=== PATIENT | female | born 1975 | race Caucasian/White ===

== ENCOUNTER 2018-02-12 17:02 | Emergency (ER) | payer MEDICAID ==
[~2018-02-12] VITALS: Ht 170.2 cm; Wt 55.0 kg
[~2018-02-12 17:02] MED LIST: BENZ-16 PO; CYCL10TA10 PO; LEVA15HF4 IH
[2018-02-12 17:06] VITALS: BP 116/67
[2018-02-12] MEDS ORDERED: CLIN300C85 PO (18:34)
== END 2018-02-12 18:47 | disposition home or self-care (01) ==
LOC: ER 17:04
DX: L02.416 Cutaneous abscess of left lower limb (principal); Z88.0 Allergy status to penicillin; Z88.8 Allergy status to other drugs, medicaments and biological substances; Z79.899 Other long term (current) drug therapy
CPT/HCPCS: 99283; A6255; A6449

== ENCOUNTER 2018-09-07 17:36 | Emergency (ER) | payer MEDICAID ==
[~2018-09-07] VITALS: Ht 172.7 cm; Wt 65.0 kg
[~2018-09-07 17:36] MED LIST changes: +CLIN-96 PO
[2018-09-07 17:50] VITALS: BP 122/76
== END 2018-09-07 19:09 | disposition home or self-care (01) ==
LOC: ER 17:36
DX: F15.10 Other stimulant abuse, uncomplicated (principal); M25.512 Pain in left shoulder; R00.0 Tachycardia, unspecified; R07.89 Other chest pain; K02.9 Dental caries, unspecified; Z02.89 Encounter for other administrative examinations; Z88.0 Allergy status to penicillin; Z88.8 Allergy status to other drugs, medicaments and biological substances; Z79.899 Other long term (current) drug therapy
CPT/HCPCS: 99281

== ENCOUNTER 2018-10-15 10:25 | Emergency (ER) | payer MEDICAID ==
[~2018-10-15] VITALS: Ht 175.3 cm; Wt 66.0 kg
[2018-10-15 11:25] VITALS: BP 108/72
== END 2018-10-15 11:26 | disposition home or self-care (01) ==
LOC: ER 10:25
DX: F15.90 Other stimulant use, unspecified, uncomplicated (principal); I49.9 Cardiac arrhythmia, unspecified; Z88.0 Allergy status to penicillin; Z88.8 Allergy status to other drugs, medicaments and biological substances; Z79.2 Long term (current) use of antibiotics; Z79.899 Other long term (current) drug therapy
CPT/HCPCS: 99281

== ENCOUNTER 2020-01-23 17:58 | Emergency (ER) | payer MEDICAID ==
[~2020-01-23] VITALS: Ht 175.3 cm; Wt 63.6 kg
[~2020-01-23 17:58] MED LIST changes: -CLIN-96 PO; +CLIN-97 PO
[2020-01-23 19:02] LABS: CLARITY,URINE CLOUDY (Clear); COLOR,URINE YELLOW (Yellow); GLUCOSE, URINE 250 mg/dl (Neg); KETONES,URINE NEGATIVE (Neg); LEUKOCYTE ESTERASE ,URINE TRACE (Neg); NITRITES, URINE POSITIVE (Neg); OCCULT BLOOD,URINE TRACE-LYSED (Neg); PROTEIN,URINE 30 mg/dl (Neg)
--- NOTE | 2020-01-23 19:04 | NUR ---
VERBAL RECEIVED FROM CRISTO MOURA, FOR IBUPROFEN AND ZOFRAN TABS. PT WITH [facility] OF 12 AND NAUSEA THAT HAS PERSISTED VOER THE PAST 3 WEEKS SINCE SHE FIRST HAD THE FEVER AND BEGAN FEELING SICK. STATES THE RASH ALL OVER HER BODY HAS BEEN HERE FOR THE 3 WEEKS ALSO AND THE DISCOMFORT OF ITCHING HAS BEEN INTERMITTENT. STATES SHE HAS HAD NO NEW MEDICATIONS OR NEW FOODS. STATES SHE SMOKES METH DAILY AND WAS RECENTLY SUSPICIOUS IF SOMEONE HAD ADDED SOMETHING TO HER PIPE THAT MAY HAVE CAUSED THIS RASH ALSO. DENIES ANYONE AROUND HER BEING SICE OR BEING POSITIVE FOR COVID. SHE HAS NOT BEEN TESTED FOR COVID. STATES A "RASH JUST LIKE THIS" AFTER A PROCEDURE IN THE HOSPITAL 3 YRS AGO (FOR UTERUS BLEEDING COMPLICATIONS AFTER A STILLBIRTH).
[2020-01-23 19:07] LABS: UA COLLECTION TYPE CLN CATCH MIDSTREAM
[2020-01-23 19:09] LABS: AMORPHOUS PHOSPHATES 4+; BACTERIA,URINE FEW /HPF (Neg); MUCUS STRANDS FEW /LPF (Neg); RBC,URINE 0-2 /HPF (0-2); SQUAMOUS EPITHELIAL CELL,UR FEW /LPF (FEW); WBC,URINE 20-30 /HPF (0-4)
[2020-01-23] MEDS ORDERED: ondansetron 4mg rapidly disintigrating tab PO ONE (19:10)
[2020-01-23] MEDS ORDERED: ibuprofen tablet 400 MG TABLET PO ONE (19:10)
[2020-01-23] MEDS ORDERED: normal saline 1000ML IV soln IVB ONE (19:35)
[2020-01-23] MEDS ORDERED: CEPH-572 PO (19:36)
[2020-01-23] MEDS ORDERED: cephalexin 250mg capsule PO ONE (19:50)
[2020-01-23] MEDS ORDERED: PRED20TA PO (20:03)
--- NOTE | 2020-01-23 20:17 | NUR ---
negative strep. given keflex po (ok to take per pt). 2 liters ns started. pt ok to dc once fluids infused.
[2020-01-23 21:17] VITALS: BP 106/65
== END 2020-01-23 21:19 | disposition home or self-care (01) ==
LOC: ER 17:59
DX: J06.9 Acute upper respiratory infection, unspecified (principal); N39.0 Urinary tract infection, site not specified; Z20.828 Contact with and (suspected) exposure to other viral communicable diseases; F41.9 Anxiety disorder, unspecified; F31.9 Bipolar disorder, unspecified; F15.90 Other stimulant use, unspecified, uncomplicated; Z86.69 Personal history of other diseases of the nervous system and sense organs; Z98.890 Other specified postprocedural states; Z88.0 Allergy status to penicillin; Z88.8 Allergy status to other drugs, medicaments and biological substances; Z79.2 Long term (current) use of antibiotics; Z79.899 Other long term (current) drug therapy
CPT/HCPCS: 36415; 81001; 87081; 87088; 87880; 96360; 99284; J7030; U0003; 87077; 87186

== ENCOUNTER 2020-02-03 15:51 | Emergency (ER) | payer MEDICAID ==
[~2020-02-03] VITALS: Ht 175.3 cm; Wt 65.9 kg
[~2020-02-03 15:51] MED LIST changes: +CEPH-572 PO; +PRED20TA PO
[2020-02-03] MEDS ORDERED: normal saline 1000ML IV soln IVB ONE ×2 (17:20→18:40)
[2020-02-03 17:36] LABS: BASOPHILS # (AUTO) 0.1 X10'3 (0-0.2); BASOPHILS % (AUTO) 0.9 % (0-1); EOSINOPHILS # (AUTO) 0.2 X10'3 (0-0.9); EOSINOPHILS % (AUTO) 3.7 % (0-6); HEMATOCRIT 35.5 % (35.0-45.0); HEMOGLOBIN 11.9 g/dl (12.0-16.0); LYMPHOCYTES # (AUTO) 1.4 X10'3 (1.1-4.8); LYMPHOCYTES % (AUTO) 21.7 % (21-51); MEAN CORPUSCULAR HEMOGLOBIN 29.4 PG (27.0-31.0); MEAN CORPUSCULAR HGB CONC 33.5 g/dL (33.0-36.5); MEAN CORPUSCULAR VOLUME 87.8 FL (78-98); MEAN PLATELET VOLUME 7.3 FL (7.4-10.4); MONOCYTES # (AUTO) 0.7 X10'3 (0-0.9); MONOCYTES % (AUTO) 10.5 % (2-12); NEUTROPHILS # (AUTO) 4.2 X10'3 (1.8-7.7); NEUTROPHILS % (AUTO) 63.2 % (42-75); PLATELET COUNT 580 X10'3 (140-440); RED BLOOD COUNT 4.05 X10'6 (4.20-5.60); RED CELL DISTRIBUTION WIDTH 13.5 % (11.5-14.5); WHITE BLOOD COUNT 6.6 X10'3 (4.5-11.0)
[2020-02-03 17:43] LABS: ALANINE AMINOTRANSFERASE 27 U/L (12-78); ALBUMIN/GLOBULIN RATIO 0.6 (1.1-1.5); ALKALINE PHOSPHATASE 169 IU/L (46-116); ANION GAP 5 (8-16); ASPARTATE AMINO TRANSFERASE 46 U/L (10-37); BILIRUBIN,TOTAL 0.4 MG/DL (0.1-1.0); BLOOD UREA NITROGEN 18 MG/DL (7-18); BUN/CREATININE RATIO 21.2 (6.6-38.0); C-REACTIVE PROTEIN 6.73 MG/DL (0.0-0.5); CALCIUM 9.3 MG/DL (8.5-10.1); CHLORIDE 100 MMOL/L (99-107); CREATININE 0.85 MG/DL (0.40-0.90); GLUCOSE 108 MG/DL (70-104); SODIUM 136 MMOL/L (135-145); TOTAL CARBON DIOXIDE 31.1 MMOL/L (24-32); TOTAL PROTEIN 8.4 G/DL (6.4-8.2); eGFR 73 ML/MIN
[2020-02-03 17:47] LABS: URINE HCG NEGATIVE (NEG)
[2020-02-03 17:52] LABS: CLARITY,URINE CLOUDY (Clear); COLOR,URINE YELLOW (Yellow); GLUCOSE, URINE NEGATIVE (Neg); KETONES,URINE NEGATIVE (Neg); LEUKOCYTE ESTERASE ,URINE NEGATIVE (Neg); NITRITES, URINE POSITIVE (Neg); OCCULT BLOOD,URINE TRACE-INTACT (Neg); PROTEIN,URINE NEGATIVE (Neg); UA COLLECTION TYPE CLN CATCH MIDSTREAM
[2020-02-03 18:00] LABS: WBC,URINE 20-30 /HPF (0-4)
[2020-02-03 18:02] LABS: BACTERIA,URINE 4+ /HPF (Neg); RBC,URINE 0-2 /HPF (0-2); STARCH,URINE FEW /HPF (NEGATIVE)
[2020-02-03 18:03] LABS: MUCUS STRANDS MODERATE /LPF (Neg)
[2020-02-03 18:05] LABS: SQUAMOUS EPITHELIAL CELL,UR MODERATE /LPF (FEW)
[2020-02-03 18:17] LABS: HIV ANTIBODY 1&2 RAPID NON-REACTIVE (Neg)
[2020-02-03] MEDS ORDERED: DOXYCYCLINE 100MG CAPSULE PO STA (18:36)
[2020-02-03] MEDS ORDERED: CefTRIAXone/D5W-Rocephin 1gm 50 ML IV ONE (18:40)
[2020-02-03] MEDS ORDERED: acetaminophen 325mg tablet PO ONE (19:10)
--- NOTE | 2020-02-03 19:16 | NUR ---
CONTACTED PT'S VALENTIN ROBLERO [phone] ABOUT PICKING UP PT- HE WILL BE HERE SHORTLY FOR PT
[2020-02-03] MEDS ORDERED: DOXY100C2 PO (19:19)
[2020-02-03] MEDS ORDERED: SULF1TAB49 PO (19:19)
[2020-02-03 19:29] VITALS: BP 102/65
--- NOTE | 2020-02-06 09:20 | NUR ---
Attempted to f/u w/ lab results and need for return ed visit of pt. contact info listed incorrect. LVM with "next of kin" contact w/ request for call back re: updated phone number of pt. Did the same with Javi, individual listed as person picking up pt from ED @ time of DC requesting call back for possible correct pt phone number.
--- NOTE | 2020-02-07 08:26 | NUR ---
Attempted to call both next of kin listed on patients chart. Alberto's number went straight to voicemail, I left a message. Called Deep at which number was a nonworking number. I did not attempt to call the listed number for patient due to previous attempt at which this number was incorrect.
== END 2020-02-03 19:35 | disposition home or self-care (01) ==
LOC: ER 15:52
DX: N39.0 Urinary tract infection, site not specified (principal); R21 Rash and other nonspecific skin eruption; R30.0 Dysuria; R53.83 Other fatigue; R50.9 Fever, unspecified; J02.9 Acute pharyngitis, unspecified; F41.9 Anxiety disorder, unspecified; F17.200 Nicotine dependence, unspecified, uncomplicated; F31.9 Bipolar disorder, unspecified; F15.90 Other stimulant use, unspecified, uncomplicated; Z98.890 Other specified postprocedural states; Z86.69 Personal history of other diseases of the nervous system and sense organs; Z72.89 Other problems related to lifestyle; Z56.0 Unemployment, unspecified; Z88.0 Allergy status to penicillin; Z88.8 Allergy status to other drugs, medicaments and biological substances; Z79.2 Long term (current) use of antibiotics; Z79.899 Other long term (current) drug therapy
CPT/HCPCS: 36415; 80053; 81001; 81025; 83605; 85025; 85651; 86140; 86592; 86703; 87040; 87077; 87088; 87186; 96365; 99284; J0696; J7030